=== PATIENT | female | born 1980 | race Two or more races ===

== ENCOUNTER 2023-09-21 17:56 | Emergency (ER) | payer MEDICAID ==
[~2023-09-21] VITALS: Ht 152.4 cm; Wt 59.0 kg
[2023-09-21 18:25] LABS: BASOPHILS % (AUTO) 0.5 % (0.0-2.0); EOSINOPHILS % (AUTO) 0.1 % (0.0-6.0); HEMATOCRIT 34 % (33-45); HEMOGLOBIN 10.9 g/dL (11.5-14.8); LYMPHOCYTES # (AUTO) 0.4 K/uL (0.8-4.8); LYMPHOCYTES % (AUTO) 5.1 % (20.0-44.0); MEAN CORPUSCULAR HEMOGLOBIN 27 PG (26.0-33.0); MEAN CORPUSCULAR HGB CONC 33 g/dl (31.0-36.0); MEAN CORPUSCULAR VOLUME 82 fL (82-100); MONOCYTES # (AUTO) 0.7 K/uL (0.1-1.30); MONOCYTES % (AUTO) 8.1 % (2.0-12.0); NEUTROPHILS # (AUTO) 7.2 K/uL (1.8-8.9); NEUTROPHILS % (AUTO) 86.2 % (43.0-81.0); PLATELET COUNT (AUTO) 295 K/uL (150-450); RED BLOOD CELL COUNT(AUTO) 4.11 MIL/uL (4.0-5.2); WHITE BLOOD COUNT (AUTO) 8.4 K/uL (4.3-11.0)
[2023-09-21 18:33] LABS: CALCIUM, SERUM 8.2 mg/dL (8.5-10.1); CARBON DIOXIDE 25 mmol/L (21-32); CHLORIDE 103 mmol/L (98-107); CREATININE 0.6 mg/dL (0.6-1.3); GLUCOSE 146 mg/dL (74-106); POTASSIUM 3.2 mmol/L (3.5-5.1); SODIUM SERUM 136 mmol/L (136-145); UREA NITROGEN, BLOOD 7 mg/dL (7-18)
[2023-09-21] MEDS ORDERED: ACETAMINOPHEN ES 500 MG TABLET ONE (18:47)
[2023-09-21] MEDS ORDERED: METOCLOPRAMIDE HCL 10 MG/2 ML VIAL ONE (18:48)
[2023-09-21] MEDS: ACETAMINOPHEN ES 500 MG TABLET PO ONE (18:49)
[2023-09-21] MEDS: IV NS 0.9% 1,000 ML BAG IV ONE (18:49)
[2023-09-21 18:51] LABS: ALANINE AMINOTRANSFERASE 80 U/L (12-78); ALBUMIN 3.1 g/dL (3.4-5.0); ALKALINE PHOSPHATASE 108 U/L (46-116); ASPARTATE AMINOTRANSFERASE 53 U/L (15-37); BILIRUBIN,DIRECT 0.1 mg/dL (0.0-0.2); BILIRUBIN,TOTAL 0.2 mg/dL (0.2-1.0); NT-PRO BNP 27 pg/mL (0-125); TOTAL PROTEIN, SERUM 7.4 g/dL (6.4-8.2)
[2023-09-21] MEDS: METOCLOPRAMIDE HCL 10 MG/2 ML VIAL IV ONE (19:02)
[2023-09-21] MEDS ORDERED: METO5TAB87 PO (19:28)
[2023-09-21 20:07] VITALS: BP 130/64; TEMP 98; O2SAT 98
== END 2023-09-21 20:08 | disposition home or self-care (01) ==
LOC: ER 18:05
DX: G43.909 Migraine, unspecified, not intractable, without status migrainosus (principal); R10.2 Pelvic and perineal pain
CPT/HCPCS: 99285; 96374; 71045; 96361; 93005; 85025; 80048; 80076; 36415; 84484; 83880; 82962; 84702; J2765; J7030